=== PATIENT | female | born 1945 | race Two or more races ===

== ENCOUNTER 2021-10-29 06:36 | Day surgery (SDC) | payer OTHER ==
[~2021-10-29 06:36] MED LIST: COZAAR50 MG PO; DAFLONEX-XL 11300 MG PO; DICYCLOMINE HCL10 MG PO; NEFAZODONE HCL100 MG PO; SYNTHROID50 MCG PO; VENLAFAXINE HC150 MG PO
== END 2021-10-29 19:30 | disposition home or self-care (01) ==
LOC: CIR.AMB 06:36
PROVIDERS: ATTEND Orthopaedic Surgery Hand Surgery
DX: S52.531A Colles' fracture of right radius, initial encounter for closed fracture (principal)
CPT/HCPCS: 25609; C1776; 25118; 25280